=== PATIENT | male | born 2000 | race African-American/Black ===

== ENCOUNTER → 2022-11-03 | Outpatient (CLI) | payer OTHER | LOC: M RAD 15:12 | PROVIDERS: ATTEND Orthopaedic Surgery | DX: M19.011 Primary osteoarthritis, right shoulder (principal); M85.611 Other cyst of bone, right shoulder; M24.111 Other articular cartilage disorders, right shoulder; S42.141A Displaced fracture of glenoid cavity of scapula, right shoulder, initial encounter for closed fracture ==

== ENCOUNTER → 2023-03-07 | Outpatient (REF) | payer OTHER | LOC: M LAB REF 13:45 | PROVIDERS: ATTEND Physician Assistant Surgical | DX: Z47.89 Encounter for other orthopedic aftercare (principal) ==

== ENCOUNTER → 2023-03-09 | Outpatient (REF) | payer OTHER | LOC: M LAB REF 17:28 | PROVIDERS: ATTEND Orthopaedic Surgery | DX: Z47.89 Encounter for other orthopedic aftercare (principal) ==

== ENCOUNTER 2023-05-23 06:23 | Day surgery (SDC) | payer OTHER ==
[~2023-05-23] VITALS: Ht 177.8 cm; Wt 91.0 kg
[~2023-05-23 06:23] MED LIST: GABA-1171 PO; VALA500T5 PO; ceFAZolin SOD 2 GM in IV 1 EA IV ONE
[2023-05-23] MEDS ORDERED: LR 1,000 ML IV SCH (06:40)
[2023-05-23 07:00] LABS: HEMATOCRIT 41.2 % (42.0-52.0); HEMOGLOBIN 12.4 g/dl (13.5-17.5); MEAN CORPUSCULAR HEMOGLOBIN 21.8 pg (27.0-33.0); MEAN CORPUSCULAR HGB CONC 30.1 g/dl (32.0-36.5); MEAN CORPUSCULAR VOLUME 72.4 fl (80.0-96.0); PLATELET COUNT, AUTOMATED 255 10^3/uL (150-450); RED BLOOD COUNT 5.69 10^6/uL (4.30-6.10); WHITE BLOOD COUNT 5.5 10^3/uL (4.0-10.0)
[2023-05-23] MEDS ORDERED: POVIDONE-IODINE 5% OPHTH PREP SOL 30ML As Ordered ONE (07:07)
[2023-05-23] MEDS ORDERED: LIDOCAINE 2% W/EPINEPHRINE 20ML VIAL **PRES FREE As Ordered ONE (07:09)
[2023-05-23 07:20] LABS: BLOOD UREA NITROGEN 11 MG/DL (9-23); CALCIUM LEVEL 9.5 MG/DL (8.5-10.1); CARBON DIOXIDE LEVEL 29 MMOL/L (20-31); CHLORIDE LEVEL 108 MMOL/L (98-107); CREATININE FOR GFR 1.02 MG/DL (0.70-1.30); GLOMERULAR FILTRATION RATE > 60.0 (>60); GLUCOSE, FASTING 97 MG/DL (60-100); POTASSIUM SERUM 4.4 MMOL/L (3.5-5.1); SODIUM LEVEL 142 MMOL/L (136-145)
[2023-05-23] MEDS ORDERED: fentaNYL 100 MCG/2 ML INJECTION As Ordered ONE (07:23)
[2023-05-23] MEDS ORDERED: ONDANSETRON 4MG 2ML VIAL As Ordered ONE (07:23)
[2023-05-23] MEDS ORDERED: propofoL 200 MG/20 ML VIAL As Ordered ONE (07:23)
[2023-05-23] MEDS ORDERED: LIDOCAINE 2% 100MG/5ML SDV (FOR ANES.) As Ordered ONE (07:23)
[2023-05-23] MEDS ORDERED: MIDAZOLAM INJ 2MG/2ML VIAL As Ordered ONE (07:24)
[2023-05-23] MEDS ORDERED: dexmedeTOMIDine (4MCG/ML)200MCG/50ML BTL (PRECEDEX) As Ordered ONE (07:38)
[2023-05-23] MEDS ORDERED: ACETAMINOPHEN 1000MG 100ML IV BAG As Ordered ONE (08:11)
[2023-05-23] MEDS ORDERED: BACITRACIN OINTMENT 30GM TUBE As Ordered ONE (08:12)
[2023-05-23] MEDS ORDERED: PERCOCET 5MG/325MG TAB PO PRN (09:10)
[2023-05-23] MEDS ORDERED: MORPHINE 2 MG/ML 1ML VIAL IV PRN (09:10)
[2023-05-23 09:24] VITALS: BP 128/83; TEMP 98.1; O2SAT 98
== END 2023-05-23 09:58 | disposition home or self-care (01) ==
LOC: M SDC 06:23
PROVIDERS: ATTEND Plastic Surgery Surgery of the Hand
DX: L91.0 Hypertrophic scar (principal); F17.290 Nicotine dependence, other tobacco product, uncomplicated
CPT/HCPCS: 11643; 12052; 36415; 80048; 85027; 88302; J0131; J0690; J1100; J2250; J2405; J3010